=== PATIENT | male | born 1945 | race Caucasian/White ===

== ENCOUNTER → 2020-02-29 | Outpatient (CLI) | payer OTHER ==
[2014-05-01 14:03] VITALS: BP 143/78
[~2020-02-29] MED LIST: ASCO100065 PO; ASPI-630 PO; ASPI325T8 PO; LISI-338 PO; METO-269 PO; MULT-445 PO; OMEP20CA5 PO; OXYC1TAB15 PO; SIMV40TA18 PO
--- NOTE | 2020-02-29 18:21 | KCIC ---
EXAM: MRI RIGHT SHOULDER WITHOUT CONTRAST INDICATION: Right shoulder pain. Grade 3 acromioclavicular joint separation. Prior surgery, new onset shoulder pain and weakness. COMPARISON: Right shoulder radiograph 01/23/2020 TECHNIQUE: Multiplanar, multisequence imaging of the right shoulder without contrast. FINDINGS: The exam is limited by motion artifact. ROTATOR CUFF: Mildly progressed high-grade articular and bursal sided tearing of the supraspinatus tendon, now measuring at least 2.2 x 1.5 cm. A full-thickness component with torn fibers laying in the tear could be possible. The subscapularis, infraspinatus, and teres minor tendons are intact. No rotator cuff muscle atrophy or edema. LABRUM: Evaluation of the labrum is limited by artifact. BICEPS TENDON: Possible small longitudinal split tear as the tendon exits the joint. Evaluation limited by motion artifact. ACROMIOCLAVICULAR JOINT: Sequela of old type III AC joint injury. GLENOHUMERAL JOINT: Evaluation of humeral head cartilage is limited on coronal series due to artifact. There is some deep cartilage loss along the anterior glenoid with subchondral marrow edema.. Alignment is normal. Background marrow signal is normal. OTHER: There is a joint effusion. Small amount of fluid in the subacromial-subdeltoid bursa. Synovitis is noted.. IMPRESSION: 1. Limited exam due to motion artifact. 2. Mildly progressed high-grade articular and bursal sided tearing supraspinatus tendon. Full-thickness component could be possible. 2. Possible small longitudinal split tear of the biceps tendon as it exits the joint. 3. Cartilage loss along the anterior glenoid. Limited evaluation of the humeral head cartilage due to motion. 4. Joint effusion and synovitis. Mild subacromial subdeltoid bursitis. Electronically signed by: Dai Garcia MD (02/29/2020 6:18 PM) [id number]
== END ==
LOC: KCIC MRI 12:20
PROVIDERS: ATTEND Orthopaedic Surgery
DX: M25.411 Effusion, right shoulder (principal)
CPT/HCPCS: 73221

== ENCOUNTER → 2020-04-23 | Outpatient (CLI) | payer OTHER ==
[2014-05-01 14:03] VITALS: BP 143/78
[~2020-04-23] MED LIST changes: +PRAS25CA PO; +VITA25006 PO
--- NOTE | 2020-04-23 13:30 | EKG ---
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
[2020-04-23 13:48] LABS: BASO # 0.1 x10^3/uL (0.0-0.2); BASO % 1 % (0-3); EOS # 0.3 x10^3/uL (0.0-0.7); EOS % 4 % (0-3); HEMATOCRIT 38.4 % (39.0-53.0); HEMOGLOBIN 13.4 g/dL (13.0-17.5); LYMPH # 1.8 x10^3/uL (1.0-4.8); LYMPH % 24 % (24-48); MEAN CORPUSCULAR HEMOGLOBIN 33 pg (25-35); MEAN CORPUSCULAR HGB CONC 35 g/dL (31-37); MEAN CORPUSCULAR VOLUME 93 fL (79-100); MONO # 0.9 x10^3/uL (0.0-1.1); MONO % 12 % (0-9); NEUT # 4.4 x10^3/uL (1.8-7.7); NEUT % 60 % (31-73); PLATELET COUNT 238 x10^3/uL (140-400); RED BLOOD COUNT 4.12 x10^6/uL (4.30-5.70); RED CELL DISTRIBUTION WIDTH 12.5 % (11.5-14.5); WHITE BLOOD COUNT 7.4 x10^3/uL (4.0-11.0)
[2020-04-23 13:59] LABS: PROTHROMBIN TIME PATIENT 12.3 SEC (11.7-14.0)
[2020-04-23 14:08] LABS: ALBUMIN 3.5 g/dL (3.4-5.0); C-REACTIVE PROTEIN 1.2 mg/L (0-3.3); CALCIUM 8.7 mg/dL (8.5-10.1); CREATININE 1.2 mg/dL (0.7-1.3); GFR 59.5; POTASSIUM 4.1 mmol/L (3.5-5.1)
--- NOTE | 2020-04-23 16:10 | RAD ---
PA and lateral chest x-ray without comparison for preop, shoulder surgery. FINDINGS: Lungs are clear. Cardiomediastinum is grossly unremarkable. No significant soft tissue or o sseous abnormalities. IMPRESSION: 1. No acute cardiopulmonary abnormality. Electronically signed by: Ty Isaac MD (04/23/2020 4:08 PM) [id number]
[2020-04-24 04:10] LABS: HEMOGLOBIN A1C 5.9 % (4.8-5.6)
== END ==
LOC: SURGPAT 12:41
PROVIDERS: ATTEND Orthopaedic Surgery
DX: Z01.818 Encounter for other preprocedural examination (principal); S46.011D Strain of muscle(s) and tendon(s) of the rotator cuff of right shoulder, subsequent encounter; I45.10 Unspecified right bundle-branch block; X58.XXXD Exposure to other specified factors, subsequent encounter
CPT/HCPCS: 36415; 71046; 80048; 82040; 82306; 83036; 85025; 85610; 85730; 86140; 87641; 93005

== ENCOUNTER → 2020-05-10 | Outpatient (CLI) | payer OTHER ==
[2014-05-01 14:03] VITALS: BP 143/78
[~2020-05-10] MED LIST changes: -LISI-338 PO; +LISI-517 PO; +OXYC1TAB22 PO; +TRAM50TA PO
== END ==
LOC: LAB 10:36
PROVIDERS: ATTEND Orthopaedic Surgery
DX: Z01.812 Encounter for preprocedural laboratory examination (principal); S46.011D Strain of muscle(s) and tendon(s) of the rotator cuff of right shoulder, subsequent encounter; Z20.822 Contact with and (suspected) exposure to COVID-19; X58.XXXD Exposure to other specified factors, subsequent encounter
CPT/HCPCS: U0003

== ENCOUNTER 2020-05-14 07:25 | Observation (INO) | payer OTHER ==
[2020-05-14] VITALS (7 sets, daily range): BP systolic 113–134; BP diastolic 66–77
[~2020-05-14] VITALS: Ht 172.7 cm; Wt 108.1 kg
[~2020-05-14 07:25] MED LIST changes: +ACETAMINOPHEN 500 MG TABLET PO PRN; +EPINEPHrine VIAL 30 MG/30 ML VIAL ONE; +GABAPENTIN 300 MG CAPSULE. PO PRN; +MELOXICAM 7.5 MG TABLET PO PRN; -OXYC1TAB22 PO; -TRAM50TA PO; +TRANEXAMIC ACID 1,000 MG in IV NS 50ML -- 1ST BAG INJ ONE
[2020-05-14] MEDS ORDERED: TRANEXAMIC ACID 1,000 MG in IV NS 50ML -- 2ND BAG INJ ONE (08:00)
[2020-05-14] MEDS: IV RINGERS,LACTATED 1000ML 1,000 ML IV SCH ×2 (08:13→16:30)
[2020-05-14] MEDS ORDERED: PROPOFOL 10 MG/ML (20ML) VIAL. IV ONE (08:42)
[2020-05-14] MEDS ORDERED: LIDOCAINE 2% PF 5 ML VIAL. ONE (08:42)
[2020-05-14] MEDS ORDERED: ROCURONIUM 50 MG/5 ML VIAL. ONE ×2 (08:42→11:43)
[2020-05-14] MEDS ORDERED: fentaNYL PF VIAL 100 MCG/2 ML VIAL ONE ×2 (08:43→14:31)
[2020-05-14] MEDS ORDERED: MIDAZOLAM HCL/PF 2 MG/2 ML VIAL. ONE ×2 (08:43→08:44)
[2020-05-14] MEDS ORDERED: VANCOMYCIN 1 GM VIAL. ONE (08:47)
[2020-05-14] MEDS ORDERED: ROPIVacaine 0.5% PF 20 ML VIAL. ONE (08:57)
[2020-05-14] MEDS ORDERED: SUCCINYLCHOLINE 200 MG/10 ML VIAL. ONE (09:24)
[2020-05-14] MEDS ORDERED: TRANEXAMIC ACID in NS IVPB 50 ML ONE (10:13)
[2020-05-14] MEDS ORDERED: SEVOFLURANE > 120 MINUTES. IH ONE (10:18)
[2020-05-14] MEDS ORDERED: GLYCOPYRROLATE 1 MG/5 ML VIAL. ONE (10:35)
[2020-05-14] MEDS ORDERED: NEOSTIGMINE METHYLSULFATE 5 MG/5 ML SYRINGE. ONE (10:35)
--- NOTE | 2020-05-14 11:23 | HP ---
ADMIT DATE: 05/14/2020 CHIEF COMPLAINT: Right shoulder pain and weakness. HISTORY: The patient is a 75-year-old male with severe limiting pain in his right shoulder, painful clicking as he tries to bring the arm out in abduction. It is very limiting to his activities of daily living and has been worsening since his last visit and prior to that, really obtaining an MRI. He is having difficulties at night and with functioning during the day as well. PAST MEDICAL HISTORY: Significant for reflux disease, hyperlipidemia and hypertension. PAST SURGICAL HISTORY: Right shoulder arthroscopy back in 2014 and cardiac stent placement. FAMILY HISTORY: Mother and father both . SOCIAL HISTORY: He is a former smoker with about a 48-efxo-xnrt history of smoking, but quit over 10 years ago, occasional social alcohol use, denies drug use. , with 2 healthy children. MEDICATIONS: List is reviewed. ALLERGIES: He has no known drug allergies. REVIEW OF SYSTEMS: He denies any chest pain, shortness of breath, recent febrile illness, constitutional symptoms, focal weakness, numbness, tingling and otherwise negative review of systems. PHYSICAL EXAMINATION: VITAL SIGNS: Per admission sheet. HEENT: Atraumatic, normocephalic. HEART: Regular rate and rhythm. LUNGS: Clear to auscultation bilaterally. ABDOMEN: Benign. EXTREMITIES: Right shoulder active and passive range of motion limited about 120 degrees: Left shoulder has full range of motion. Normal motion and stability, bilateral elbows and wrists. He has severe abduction weakness on the right. Mild limitation of his internal and external rotation strength that is limited secondary only to pain. He also has a chronic grade 3 shoulder separation at the acromioclavicular joint and no evidence of skin compromise. Normal examination of contralateral shoulder, bilateral elbows and wrists with intact motor function, distal pulses, sensation, reflexes, skin in both upper extremities throughout. IMAGING: MRI shows some motion artifact, but does appear to have a recurrent full-thickness tear of the supraspinatus and longitudinal split tear of the biceps tendon. IMPRESSION: 1. Recurrent tear, right rotator cuff and split biceps tendon pathology. 2. Right acromioclavicular joint type 3 separation. TREATMENT PLAN: I have gone over with he and his this morning review of our previous discussion, in which he has a bad combination of a rotator cuff tear and glenohumeral wear in a couple of isolated areas at least. Although we will scope the shoulder to evaluate, I think the most likely procedure really is a reverse total shoulder arthroplasty as opposed to a rotator cuff repair and biceps tenodesis, and regarding correction of the chronic shoulder, I went over with him that we can correct that at the same time by using a zip-tie type correction from the clavicle through the coracoid to recreate the support in the coracoclavicular ligament area and we will allow that to heal and scar in for stability, that should not really further affect his recovery generally. We did talk about the possibility of continued pain, infection, nerve or blood vessel damage, medical or other anesthetic complications among others and specifically, the terminal range of motion likely to be less with a reverse shoulder arthroplasty based on the nature of the implant and also the possibility of instability, premature wear, loosening and limiting of heavy lifting as a result. All of his questions were answered. He wishes to proceed with surgical evaluation and treatment, which will occur with joint center observation to follow today. EVA DE LA PAZ MD DR: LATOYA/myah JOB#: [id number] / [id number]
[2020-05-14] MEDS ORDERED: PHENYLEPHRINE in 0.9% NACL PF 1 MG/10 ML SYRINGE. IV ONE (11:47)
[2020-05-14] MEDS ORDERED: PROCHLORPERAZINE 10 MG/2 ML VIAL. IVP PRN (12:30)
[2020-05-14] MEDS ORDERED: HYDROmorphone 2 MG/ML VIAL IVP PRN (12:30)
[2020-05-14] MEDS ORDERED: fentaNYL PF VIAL 100 MCG/2 ML VIAL IVP PRN (12:30)
[2020-05-14] MEDS ORDERED: IV RINGERS,LACTATED 1000ML 1,000 ML IV SCH (12:30)
[2020-05-14] MEDS ORDERED: MORPHINE SULFATE 2 MG/ML VIAL. ONE (13:59)
[2020-05-14] MEDS: MORPHINE SULFATE 2 MG/ML VIAL. IVP PRN ×2 (14:03→14:17)
[2020-05-14] MEDS: fentaNYL PF VIAL 100 MCG/2 ML VIAL IVP PRN ×2 (14:37→15:11)
[2020-05-14] MEDS ORDERED: oxyCODONE/APAP 5/325 1 TAB TABLET PO PRN (15:15)
[2020-05-14] MEDS ORDERED: PROCHLORPERAZINE 5 MG TABLET. PO PRN (15:15)
[2020-05-14] MEDS ORDERED: IV NORMAL SALINE 1000ML BAG 1,000 ML IV SCH (15:15)
[2020-05-14] MEDS ORDERED: 0.9 % SODIUM CHLORIDE 10 ML DISP.SYRIN. IV PRN (15:15)
[2020-05-14] MEDS ORDERED: ACETAMINOPHEN 325 MG TABLET. PO PRN (15:15)
[2020-05-14] MEDS ORDERED: DEXTROSE 50% 25 GM / 50ML DISP.SYRIN. IV PRN (15:15)
[2020-05-14] MEDS ORDERED: ZOLPIDEM 5 MG TABLET. PO PRN (15:15)
[2020-05-14] MEDS ORDERED: CALCIUM CARBONATE 500 MG TAB.CHEW PO PRN (15:15)
[2020-05-14] MEDS ORDERED: traMADol 50 MG TABLET PO PRN ×2 (15:15)
[2020-05-14] MEDS ORDERED: HYDROcodone/APAP 7.5/325MG 1 TAB TABLET PO PRN (15:15)
[2020-05-14] MEDS ORDERED: NALOXONE 0.4 MG/ML VIAL. IV PRN (15:15)
[2020-05-14] MEDS ORDERED: HYDROcodone/APAP 10/325 1 TAB TABLET PO PRN (15:15)
[2020-05-14] MEDS ORDERED: HYDROmorphone 2 MG/ML VIAL IV PRN (15:15)
[2020-05-14] MEDS: IV DEXTROSE 5 %-0.45 % NACL 1,000 ML IV SCH (15:37)
--- NOTE | 2020-05-14 16:37 | RAD ---
INDICATION: Reason: POST OP / Spl. Instructions: True AP of scapula and outlet view, do not move arm / History: COMPARISON: February 2020 IMPRESSION: Right shoulder: 2 views obtained. Right shoulder arthroplasty changes without periprosthetic fracture or dislocation. There is also postoperative changes with presumed fixation at coracoclavicular ligam ent. Suspected right-sided pleural effusion and interstitial opacities in the right lung which could be from edema or interstitial infiltrate Electronically signed by: Dale Stearns MD (05/14/2020 4:35 PM) [id number]
[2020-05-14] MEDS: FERROUS SULFATE 325 MG TABLET. PO SCH (17:15)
[2020-05-14] MEDS: KETOROLAC TROMETHAMINE 10 MG TABLET PO SCH (17:15)
--- NOTE | 2020-05-14 18:28 | PDOC4 ---
Operative Note Operative Note Date of surgery 05/14/2020 Preoperative diagnosis: Recurrent retracted right rotator cuff tear with degenerative labrum and glenohumeral joint and acromioclavicular joint chronic instability Postoperative diagnosis: Same with poor tissue quality and degeneration of the humeral head and glenoid with significant superior labral degeneration Operative procedure: Right reverse shoulder arthroplasty, coracoacromial ligament reconstruction and biceps tenodesis Surgeon: Aysha Rn Er: Farhat Fisher registered nurse first assistant Anesthesia: General plus scalene block Estimated blood loss: 150 cc Complications: None Operative indications: Please see my preoperative clinic note for detailed operative indications and note that he continues to have pain with activities and at night and difficulty with strength maneuvers or lifting his arm away from his side. He continues to have clinical findings of weakness and pain and MRI notable for a recurrent retracted rotator cuff tear with significant muscular atrophy. We had talked about possibility of rotator cuff repair and if the tear is irreparable and or paired with significant degenerative change as expected, the alternate plan of reverse shoulder arthroplasty and in either case attempted correction of his acromioclavicular joint instability with a coracoclavicular stabilization procedure including the possibility of infection nerve or blood vessel damage instability premature wear or loosening medical or other anes thetic complications among others he acknowledges the possible risks and agrees to proceed with surgical evaluation and treatment. Operative text: Patient was identified procedure verified patient placed in the beachchair position on the operating table with the T-Max headrest. After adequate amounts of general anesthesia and a pre-existing scalene block were obtained he was placed in the beachchair position using the T-Max headrest and all bony prominences were well-padded. The right shoulder was prepped and draped in standard sterile fashion and after timeout was performed patient procedure identified and verified a standard posterior portal was established and the shoulder joint examined through the arthroscope and noted to have significant glenohumeral degenerative change as well as severe labral fraying and a recurrent full-thickness rotator cuff tear. Biceps long head intra- articular was observed to be split and frayed and with the decision to proceed with reverse shoulder arthroplasty a deltopectoral approach was carried out deltoid was elevated and the distal deltoid was bluntly elevated off the humeral insertion to avoid traction injury during the procedure. The biceps was examined and noted to have several calcified loose bodies in the bicipital tendon sheath which was opened and the loose bodies removed, clavipectoral fascia was taken down the subscapularis was released as was the superior aspect of the pectoralis, humerus was exposed and reamed to a size 12 mm stem and a 10 degree retroverted cut was carried out and reaming proximally carried out preparation for a Mary 130 mm trial with stem length 12 mm stem diameter. Biceps was tenodesed with multiple sutures at the low portion of the bicipital groove, glenoid was then exposed capsular release was performed. A guidewire was placed in slight declination low centrally in the glenoid and any residual labrum was previously removed and reaming was carried out down to bleeding bone inferiorly sclerotic superior bone was drilled to improve the blood supply and a trabecular metal glenoid baseplate was impacted and screws were placed inferiorly in the scapular spine superiorly to the base of the coracoid with excellent fixation and were locked. At this time it was difficult to maneuver the glenosphere into a proper position as the scapula was unstable and to stabilize it superiorly the acromioclavicular joint was reduced and with an ACL drill guide placed under the base of the coracoid and on top of the corresponding insertion on the distal clavicle a guidewire was advanced and 4 mm cannulated drill bit from the Mary zip Loop fixation system which was then placed with the button flipped at the base of the coracoid and engaged palpably and the titanium button was then threaded appropriately and cinched down to complete the coracoclavicular repair. This improved exposure to allow placement of the 36 mm glenosphere which was then impacted to engage the Hernández taper and trial fitting carried out with a standard +6 mm offset 36 mm trial liner. Full range of motion excellent stability were obtained and trial components were removed. Irrigation carried out normal saline solution with pulse lavage and a reverse shoulder system 12 mm nonporous humeral stem 130 mm stem length was assembled with a 36 mm +6 offset polyethylene liner and was impacted in proper version with excellent stability reduced and found to have equivalent range of motion and stability. Superior aspect of the pectoralis was repaired and partial subscapularis repair carried out with max braid suture to avoid any excessive tension. Thorough irrigation again carried out with dilute Betadine lavage followed by normal saline solution 1 g vancomycin was placed in the joint closure accomplished with buried Vicryl suture skin closure with subcuticular strata fix Monocryl suture and sterile dressings were applied. Patient was placed in a sling returned to recovery room in stable condition having tolerated the procedure well. Farhat huerta assist was present for the procedure assisted in the patient positioning prepping draping retraction closure and dressings EVA DE LA PAZ MD May 14, 2020 18:28
[2020-05-14] MEDS: ASPIRIN ENTERIC COATED 325 MG TABLET.DR. PO SCH (20:55)
[2020-05-14] MEDS: oxyCODONE/APAP 7.5/325 1 TAB TABLET PO PRN (20:55)
[2020-05-14] MEDS ORDERED: SIMVASTATIN 40 MG TABLET. PO SCH (21:00)
[2020-05-15] MEDS: KETOROLAC TROMETHAMINE 10 MG TABLET PO SCH ×3 (00:15→13:10)
[2020-05-15] MEDS: IV DEXTROSE 5 %-0.45 % NACL 1,000 ML IV SCH (01:15)
[2020-05-15] MEDS: IV RINGERS,LACTATED 1000ML 1,000 ML IV SCH (02:30)
[2020-05-15 03:14] VITALS: BP 121/66
[2020-05-15] MEDS ORDERED: MAGNESIUM HYDROXIDE 2,400 MG/30 ML ORAL.SUSP. PO PRN (06:00)
[2020-05-15 06:15] VITALS: BP 118/70
[2020-05-15] MEDS ORDERED: PANTOPRAZOLE 40 MG TABLET.DR. PO PRN (07:30)
[2020-05-15] MEDS: FERROUS SULFATE 325 MG TABLET. PO SCH (08:15)
[2020-05-15] MEDS: ASPIRIN ENTERIC COATED 325 MG TABLET.DR. PO SCH (08:15)
[2020-05-15 08:17] VITALS: BP 112/61
[2020-05-15] MEDS ORDERED: LISINOPRIL 5 MG TABLET. PO SCH (09:00)
[2020-05-15] MEDS ORDERED: SENNOSIDES/DOCUSATE 8.6/50MG TABLET. PO SCH (09:00)
[2020-05-15] MEDS ORDERED: MULTIVITAMIN with MINERAL TABLET. PO SCH (09:00)
[2020-05-15] MEDS ORDERED: METOPROLOL SUCC 24HR ER 50 MG TAB.ER.24H. PO SCH (09:00)
[2020-05-15 09:58] LABS: HEMATOCRIT 34.4 % (39.0-53.0); HEMOGLOBIN 11.9 g/dL (13.0-17.5)
--- NOTE | 2020-05-15 10:50 | NUR ---
Aashish is doing well. He expects to go home this evening. He has good sensation, pulses and skin is warm to touch kj upper extremities. [place] is on. Demonstrated dressing . original surgical dressing was removed. cleansed with chlor prep then Aquacel Ag applied to incision and scope sites. verbalized understanding of these. is at bedside and verbalized understanding of these instructions
[2020-05-15 11:00] VITALS: BP 128/69
[2020-05-15] MEDS ORDERED: PHENOL ORAL SPRAY 177ML BOTTLE. PO PRN (11:15)
[2020-05-15 11:27] VITALS: BP 128/69
[2020-05-15] MEDS ORDERED: OXYC1TAB22 PO (13:39)
[2020-05-15] MEDS ORDERED: TRAM50TA PO (13:39)
--- NOTE | 2020-05-15 13:43 | DISCH ---
DISCHARGE INSTRUCTIONS Condition on Discharge Condition on Discharge: Stable Activity After Discharge Activity Instructions for Disc: Other, see below (use arm for gentle reachimg and fine motor use) Other activity instructions: do exercises as instructed by therapist Bathing Instructions: Shower-keep dressing dry, No Tub Bath until see Lifting Instructions after Dis: No heavy lifting Exercise Instruction after Dis: Exercise per therapy Weight Bearing Status after Di: As tolerated Diet after Discharge Diet after Discharge: Regular Liquid Texture: Thin Liquid Wound Incision Care Wound/Incision Care: Ice to area for comfort, Do not change dressing Other wound/incision instructi: do not change dressing; if saturated call Dr. Olmstead Checks after Discharge DC Comment: increase fruits,vegetables and fiber;attempt BM q 2-3 days Community/Resources/Services Services at Discharge: PT EVALUATE & TREAT Contacting the after DC Call your doctor for: Concerns you may have Follow-Up Follow Up With: call [phone] for f/u appt with Dr. Olmstead [phone] Treatment/Equipment after DC Adaptive Equipment Issued: Brace/splint EVA OLMSTEAD MD May 15, 2020 13:43
[2020-05-15] MEDS: oxyCODONE/APAP 7.5/325 1 TAB TABLET PO PRN (15:12)
--- NOTE | 2020-05-15 15:19 | NUR ---
reviewed discharge instructions with rajesh and . reviewed restrictions to activities of daily living such as bathing dressing and driving. verbalized understanding of restrictions. reviewed medications and side effects. 1st PT appt made. has a follow up appt with Dr. Olmstead already sceduled. reviewed care of dressing. dismissed to home
[2020-05-15] MEDS ORDERED: BISACODYL 10 MG SUPP.RECT. PR PRN (16:00)
--- NOTE | 2020-05-16 02:48 | DS ---
DATE OF DISCHARGE: 05/15/2020 ORTHOPEDIC DISCHARGE SUMMARY PRINCIPAL DIAGNOSES: Status post right reverse shoulder arthroplasty and coraco-acromioclavicular ligament reconstruction. DISPOSITION: Home with outpatient physical therapy. DISPOSITION MEDICATIONS: Include Percocet 10/325 one p.o. q.4 hours p.r.n. pain for severe and tramadol 50 mg p.o. q.4 hours p.r.n. mild to moderate. Continue preoperative medications aside from his previous dose of Percocet. Follow up with Dr. Olmstead in 10-14 days. BRIEF DESCRIPTION OF HOSPITAL COURSE: The patient underwent uncomplicated reverse total shoulder arthroplasty on resolution of his block. Pain had returned, but was reasonably controlled with Percocet, prior to that with tramadol for less severe pain. He underwent some instruction in physical therapy and restrictions. Distal neurovascular status was intact, incision intact and he was discharged home in stable condition with physical therapy to start next week. EVA OLMSTEAD MD DR: LATOYA/myah JOB#: [id number] / [id number]
--- NOTE | 2020-05-20 08:06 | PATHOLOGY ---
[facility] Accession Number: [id number] . 01 Material submitted: . shoulder - RIGHT SHOULDER BONE. Modifiers: right . 01 Clinical history: . TRAUMATIC TEAR OF THE ROT . 02 Diagnosis: Segment of bone and cartilage, right reverse total shoulder arthroplasty: - Degenerative arthritis. (LAILAM:mary; 05/17/2020) [facility] 05/17/2020 1610 Local . 02 Electronically signed: . Otto Mead MD, Pathologist NPI- [id number] . 01 Gross description: . Received in formalin labeled "Jaleel, Aashish, right shoulder bone" is a convex portion of orozco-white bone measuring 4.7 x 4.6 x 2.0 cm. The convex aspect has a cartilage covered surface with roughening and eburnation over a 2.6 x 2.0 cm area. The resected aspect has a smooth surgical margin with focal roughened areas. Embedded Engineer tissue is submitted in cassette A1 following decalcification. ([facility]; 05/16/2020) [facility] 05/17/2020 1609 Local . 02 Pathologist provided ICD-10: M19.011 . 02 CPT . 901585, [id number] Specimen Comment: A courtesy copy of this report has been sent to [phone], [phone] Specimen Comment: [phone] Specimen Comment: Report sent to / DR KIM Performed at: 01 [facility] [address] [facility] [address], [place] [id number] MD Seb Samuel MD Phone: [phone] Performed at: 02 [facility] [address] [place], [place] [id number] MD Otto Mead MD Phone: [phone]
== END 2020-05-15 15:43 | disposition home or self-care (01) ==
LOC: SURG 07:25 → 4 SOUTHEST 15:20
PROVIDERS: ADMIT Orthopaedic Surgery; ATTEND Orthopaedic Surgery
DX: M75.121 Complete rotator cuff tear or rupture of right shoulder, not specified as traumatic (principal); M25.311 Other instability, right shoulder; M75.101 Unspecified rotator cuff tear or rupture of right shoulder, not specified as traumatic; M12.811 Other specific arthropathies, not elsewhere classified, right shoulder; I10 Essential (primary) hypertension; K21.9 Gastro-esophageal reflux disease without esophagitis; E78.5 Hyperlipidemia, unspecified; Z87.891 Personal history of nicotine dependence; Z95.5 Presence of coronary angioplasty implant and graft
CPT/HCPCS: 23430; 23472; 36415; 73030; 85014; 85018; 86850; 86900; 86901; 88304; 88311; 96365; 96366; 97110; 97116; 97162; 97166; 97535; A4565; C1713; C1769; C1776; G0378; G0379; J0171; J0330; J0690; J2250; J2270; J2370; J2704; J2710; J2795; J3010; J3370; J3490; J7042